=== PATIENT | male | born 1930 | race Caucasian/White ===

== ENCOUNTER 2018-05-04 05:30 | Day surgery (SDC) | payer OTHER ==
[~2018-05-04] VITALS: Ht 185.4 cm; Wt 78.9 kg
--- NOTE | ~2018-05-04 | O ---
[facility] [place] [address] OPERATIVE REPORT Name: JULIA ESTRELLA Room #: 150-1 [facility]#: [id number] Admission: 05/04/18 Attend Phys: Issa Bazzi MD Discharge: Date of : 32 Report #: [id number] THIS REPORT FOR: //name// CC: Gary Bazzi DATE OF SERVICE: 05/04/2018 SURGEON: Issa Bazzi MD PATTERNATOR: None. PREOPERATIVE DIAGNOSIS: Bilateral lower lid ectropion. POSTOPERATIVE DIAGNOSIS: Bilateral lower lid ectropion. OPERATION PERFORMED: Bilateral lower lid ectropion repair. ANESTHESIA: Local with IV sedation. COMPLICATIONS: None. INDICATIONS FOR PROCEDURE: This patient has bilateral acquired lower lid ectropion with chronic tearing and discharge. The current procedures are undertaken in order to improve the patient's visual function, lacrimal outflow, and level of comfort. Informed consent was obtained to include but not limit to the risk of loss of vision, bleeding, infection, scarring, failure to improve the problem and need for further surgery. DESCRIPTION OF OPERATION: The patient was taken to the operating room where 2% Xylocaine with epinephrine mixed with equal parts of 0.75% Marcaine with Wydase was administered transcutaneously and transconjunctivally to each lower lid and lateral canthal area. The patient was then prepped and draped in the usual sterile fashion. A Maxwell clamp was then used to clamp the left lateral canthus following which a sharp canthotomy and cantholysis were performed. The tarsal strip was prepared laterally, removing the lash bearing portion of the redundant lid margin and the redundant tarsal plate. Hemostasis was achieved with a monopolar cautery, as it was throughout the case. The tarsal strip was then secured to the internal portion of the lateral orbital tubercle with two interrupted 5-0 Prolene sutures. The lateral canthal angle was sharply reformed as the subcutaneous structures and the skin were closed with multiple interrupted 6-0 plain gut sutures. Attention was then turned to the right side where the same procedure was [facility] [address] [place] [address] OPERATIVE REPORT Name: PHUONGPETEJULIA L Room #: 150-1 [facility].#: [id number] Admission: 05/04/18 Attend Phys: Issa Bazzi MD Discharge: Date of : 32 Report #: [id number] performed. The wounds were cleaned and dressed with ophthalmic antibiotic ointment. The patient was then transported to the recovery area, having tolerated the procedure well with no anesthetic or operative complications being noted. By: 1341 1348 Issa Bazzi MD /nt
[~2018-05-04 05:30] MED LIST: AMOXICILLIN 50500 MG PO; ASPIRIN325 PO; CENTRUM SILVER1 EAC2 PO; DESYREL150 MG PO; EXELON1 EACH TOP; LISINOPRIL10 MG PO; MIRALAX17 G1 PO; NEURONTIN600 MG PO; POTASSIUM99 MG PO; SLEEP AID25 MG PO
[2018-05-04 14:08] VITALS: BP 165/55
== END 2018-05-04 14:25 | disposition home or self-care (01) ==
LOC: OR 05:30 → TBA 05:30 → OR 09:03
DX: H02.105 Unspecified ectropion of left lower eyelid (principal); H02.102 Unspecified ectropion of right lower eyelid; I10 Essential (primary) hypertension; M19.90 Unspecified osteoarthritis, unspecified site; G47.33 Obstructive sleep apnea (adult) (pediatric); Z98.890 Other specified postprocedural states; Z87.891 Personal history of nicotine dependence; Z95.0 Presence of cardiac pacemaker; Z96.653 Presence of artificial knee joint, bilateral; Z98.41 Cataract extraction status, right eye; Z98.42 Cataract extraction status, left eye; Z96.612 Presence of left artificial shoulder joint
CPT/HCPCS: 50010; 50101; 50386; 50398; 51636; 56527; 56531; 70005

== ENCOUNTER 2018-06-15 05:27 | Day surgery (SDC) | payer OTHER ==
[~2018-06-15] VITALS: Ht 185.4 cm; Wt 79.8 kg
--- NOTE | ~2018-06-15 | O ---
[facility] [place] [address] OPERATIVE REPORT Name: JULIA ESTRELLA Room #: 150-2 [facility]#: [id number] Admission: 06/15/18 Attend Phys: Issa Bazzi MD Discharge: Date of : 32 Report #: [id number] THIS REPORT FOR: //name// CC: Janeen Bazzi DATE OF SERVICE: 06/15/2018 GREEN CHAIN OFFBEARER: None. PREOPERATIVE DIAGNOSIS: Bilateral upper lid ptosis with superior visual field defects both eyes. POSTOPERATIVE DIAGNOSIS: Bilateral upper lid ptosis with superior visual field defects both eyes. OPERATION PERFORMED: Bilateral upper lid functional ptosis repair. GREEN CHAIN OFFBEARER: None. ANESTHESIA: Local with IV sedation. COMPLICATIONS: None. INDICATIONS FOR PROCEDURE: This patient has bilateral upper lid ptosis with superior visual field loss both eyes. Visual field testing demonstrates dense superior visual defects. Retesting with the upper lid elevated shows an improvement in visual field loss of over 30% and in excess of 12 degrees. The current procedure is being undertaken in order to improve the patient's visual function. Informed consent was obtained to include but not limited to the risk of loss of vision, bleeding, infection, scarring, failure to improve the problem and need for further surgery, such as adjustment of lid height. DESCRIPTION OF PROCEDURE: The patient was taken to the operating room, where 2% Xylocaine with epinephrine mixed with equal parts of 0.75% Marcaine with Wydase was administered transcutaneously to each upper lid. The patient was then prepped and draped in the usual sterile fashion. An upper lid crease incision was then made bilaterally and the dissection was carried down until the orbital septum was identified. The orbital septum was then cleared and the preaponeurotic fat identified. The levator aponeurosis was then disinserted from the anterior surface of the tarsal plate and dissected [address] [address] OPERATIVE REPORT Name: JULIA ESTRELLA Room #: 150-2 [facility]#: [id number] Admission: 06/15/18 Attend Phys: Issa Bazzi MD Discharge: Date of : 32 Report #: [id number] free in the avascular Andrew's muscle plane. The aponeurosis was then advanced and reattached to the anterior surface of the tarsal plate with interrupted mattress 6-0 Novafil sutures on each side, adjusting for height and contour. The redundant aponeurosis was then amputated. The incision was then closed with multiple interrupted 6-0 chromic sutures that were used to recreate an upper lid crease. The skin was closed with a running 6-0 plain gut suture. The wound was then cleaned and dressed with ophthalmic antibiotic ointment followed by a Telfa pad. The patient was transported to the recovery area, having tolerated the procedure well with no anesthesia or operative complications being noted. By: 1206 [id number] MD millie Mancilla
[~2018-06-15 05:27] MED LIST changes: +VITAMIN D3400 UNIT PO
[2018-06-15 10:45] VITALS: BP 132/49
== END 2018-06-15 12:40 | disposition home or self-care (01) ==
LOC: TBA 05:27 → OR 05:27 → TBA 05:28 → OR 07:54
DX: H02.403 Unspecified ptosis of bilateral eyelids (principal); H53.462 Homonymous bilateral field defects, left side; H53.461 Homonymous bilateral field defects, right side; F03.90 Unspecified dementia, unspecified severity, without behavioral disturbance, psychotic disturbance, mood disturbance, and anxiety; I10 Essential (primary) hypertension; M19.90 Unspecified osteoarthritis, unspecified site; Z98.41 Cataract extraction status, right eye; Z98.42 Cataract extraction status, left eye; Z95.0 Presence of cardiac pacemaker; Z87.891 Personal history of nicotine dependence; Z96.612 Presence of left artificial shoulder joint; Z98.890 Other specified postprocedural states; Z96.653 Presence of artificial knee joint, bilateral; Z79.899 Other long term (current) drug therapy; Z85.72 Personal history of non-Hodgkin lymphomas; Z79.82 Long term (current) use of aspirin
CPT/HCPCS: 50010; 50101; 50386; 50398; 51636; 56528; 56531; 62110; 62850; 70005

== ENCOUNTER 2018-10-26 06:41 | Day surgery (SDC) | payer OTHER ==
[~2018-10-26] VITALS: Ht 185.4 cm; Wt 80.3 kg
--- NOTE | ~2018-10-26 | O ---
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 PROCEDURE: Right transfrontal orbitotomy. SURGEON: Issa Bazzi M.D. INPATIENT SERVICES RN: None. ANESTHESIA: General. COMPLICATIONS: None. INDICATIONS FOR SURGERY: This pleasant 88-year-old gentleman has a remote history of having had a non-Hodgkin's lymphoma. He presents now with a mass in his right medial orbit that encompasses the medial half of his globe extending back deep into the orbit. Today's procedure is to obtain sufficient tissue in order to determine the histologic nature of the lesion. Informed consent was obtained to include but not limited to the potential risk for loss of vision, bleeding, infection, and the certain need for further treatment after the underlying nature of the disease process is determined. DESCRIPTION OF PROCEDURE: The patient was taken to the operating room where general anesthesia was administered. The preoperative CT scan was studied. An extended lid crease incision was then outlined medially in the upper lid and subsequently made with a Sander scissor. The dissection was then carried down on to the area around the tarsal plate. This is where the mass was identified. It appeared to be diffusely infiltrating the tarsal plate. It was dissected off of what should have been the tarsal plate as best possible as the dissection was carried back out into the anterior orbit. The incision and the lid was taken full thickness back on to the conjunctival surface. The mass was moderately friable and fish fleshy in color. Four separate specimens all from the same [address] [address] OPERATIVE REPORT Name: JULIA ESTRELLA Risa Room #: 150-6 [facility]#: [id number] Admission: 10/26/18 ������������������ Attend Phys: Issa Bazzi MD Discharge: ������������������ Date of : 32 Report #: [id number] site were taken back into the orbit. The pathologist was brought in the room and handed the specimens and told the patient's history. She was planning on processing it for both flow and permanent section histology. The wound was diligently dried with pinpoint monopolar cautery. The wound was then closed with interrupted 6-0 plain gut sutures. It was dressed with erythromycin ointment. The patient subsequently transported to the recovery area having tolerated the procedure well with no anesthetic or operative complications being noted. ��������������������������������������������� ���������������������������������������� By: ��������������������������������������������� 1154 1216 Issa Bazzi MD /nt
[~2018-10-26 06:41] MED LIST changes: +DIPHENHYDRAMINE25 M3 PO; +FLONASE 0.05%50 MCG NASAL; +MELATONIN10 M1 PO; +STOOL SOFTENER250 MG PO
[2018-10-26 11:11] VITALS: BP 177/73
--- NOTE | 2018-11-02 12:06 | PATH ---
[facility] [place] [address] [place] [address] PATHOLOGY RPT PROCEDURE Name: JULIA RIZVI Room #: DEP [facility]..#: [id number] ������������������ Admission: 10/26/18 ������������������ Date of : 32 Discharge: 10/26/18 Report #: [id number] Path Case #: [id number] [facility] Accession Number: [id number] . 01 Material submitted: . orbit - RIGHT MEDIAL ORBITAL MASS. Modifiers: right, medial . 01 Clinical history: . Orbital mass . History of non-Hodgkin's lymphoma several years ago. . 02 Diagnosis: Right medial orbital mass, excisional biopsy: - Follicular lymphoma, Grade I-II, diffuse growth pattern. Please see comment. (REESEQ:simone; 10/31/2018) . . . Please see included [facility] report [id number]. AZJ/10/31/2018 . 02 Comment: Examination of the orbital mass shows diffuse proliferation of small to medium sized lymphoma cells with round slight to irregular nuclear borders, small amount of cytoplasm and small to inconspicuous nucleoli. Occasional centro blasts (2-8/high-power field) are noted. Immunophenotypic studies by flow cytometry reveal CD10 positive monotypic (clonal) B-cell population with predominantly small to intermediate/mixed cell size. (Please see flow cytometry report from [facility], specimen ID [id number]). To confirm flow cytometric findings and characterize the lymphoma cells in a tissue architectural context, immunohistochemical stains are performed with appropriate controls: . Block A1 CD20: Positive. CD3: Highlights T-lymphoid cells. CD5: Highlights T-lymphoid cells. CD10: Positive. BCL2: Positive. BCL6: Positive. Ki67: Approximately 20% proliferation fraction. . Based on the morphology, immunohistochemical staining pattern and flow cytometry, these findings are consistent with involvement by follicular lymphoma, Grade I-II, diffuse growth pattern. [address] [address] PATHOLOGY RPT PROCEDURE Name: JULIA RIZVI Room #: DEP [facility] Kathleen#: [id number] ������������������ Admission: 10/26/18 ������������������ Date of : 32 Discharge: 10/26/18 Report #: [id number] Path Case #: [id number] . These findings are discussed with Dr. Issa Bazzi on 11/01/18 at 2:30 pm. . 02 Electronically signed: . Tianna Preciado MD, Pathologist NPI- [id number] . 01 Gross description: . Received fresh from the OR labeled, "Julia Rizvi, Right medial orbital mass" are four irregular white-de jesus firm fragments of tissue ranging from 0.3 cm to about 0.6 cm each. Tiny fragment from each of these specimens is placed in RPMI and sent to [facility] for flow cytometric analysis. The remainder of the specimen is wrapped and submitted in toto for permanent sections only in A1. Touch preparations are made as well (stained with Oshea stain). (IUV:mml; 10/27/2018) [facility] . 02 Microscopic: . Special studies report received from [facility], [address] [place] [address], [address], [place], [address], on case [id number], labeled with their number [id number], dated 10/27/2018. . Flow Cytometry: Hematologic Neoplasia Assessment . Clinical History Orbital mass . Indication for Study Evaluation for lymphoma . Specimen Tissue, Orbital . Viability 71% (7AAD exclusion) . Interpretation Tissue, Orbital: CD10+ monotypic (clonal) B-cell population (8% of sample) with predominantly small to intermediate / mixed / cell size (see comments) . 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 Differential diagnosis includes follicular lymphoma, large B-cell lymphoma and Burkitt lymphoma. Morphologic and immunohistochemical comparison is required for accurate subclassification. [address] [address] PATHOLOGY RPT PROCEDURE Name: JULIA RIZVI Room #: DEP [facility] Kathleen#: [id number] ������������������ Admission: 10/26/18 ������������������ Date of : 32 Discharge: 10/26/18 Report #: [id number] Path Case #: [id number] . Populations Analyzed Abnormal B-cells: 8% Scatter properties compatible with small to intermediate cell size, cells characterized as: CD45+, CD19+, CD20+, CD5-, CD10+, CD23-, FMC7+, CD30-, CD43-, CD38+/-, HLA DR+, sIg kappa+ Remaining 56% B-cells: 6%, polytypic/polyclonal sIg light chain Lymphocytes: pattern T-cells: no significant abnormalities of the markers tested CD4:CD8: 2.5 NK cells: 1.1% CD45 Negative 36% No significant reactivity with the markers tested Events/Debris: (may represent non-hematolymphoid cells, degenerated cells, debris, unlysed red blood cells, etc.) . . Morphologic Evaluation A slide was reviewed for senior quality analyst purposes only. . Specimen Description Total Cell Yield: 1.53 X 10 and 6 . Reagent(s) Used CD2, CD3, CD4, CD5, CD7, CD8, CD10, CD11b, CD19, CD20, CD23, CD30, CD38, CD43, CD45, CD56, CD57, FMC-7, HLA-DR, kappa, lambda . at [employer], [employer]. Kenn Burgos MD Hematopathologist . . Intended Use Flow cytometry is optimally used to immunophenotypically characterize abnormal populations when they are detected. Negative flow cytometry results do not exclude lymphoma or neoplasia. Possible false negative flow cytometry results may occur in, but are not limited to, the following: neoplastic cells in Hodgkin lymphoma are not typically adequately represented by routine clinical flow cytometry; neoplastic cells may be lost or inadequately represented due to degeneration, sample processing, sampling artifact, or patchy involvement; plasma cells are typically underrepresented by flow cytometry; immature cells/blasts may be underrepresented due to hemodilution; myeloproliferative disorders and low grade myelodysplasia may not have immunophenotypic abnormalities or increased blasts. Correlation with all available clinical, laboratory, and morphologic data is always necessary to assess for the possibility of [address] [address] PATHOLOGY RPT PROCEDURE Name: JULIA RIZVI Room #: [facility]#: [id number] ������������������ Admission: 10/26/18 ������������������ Date of : 32 Discharge: 10/26/18 Report #: [id number] Path Case #: [id number] false negative flow cytometry results and to establish a diagnosis. Each marker in this analysis was used to assess for potential antigenic abnormalities or to evaluate detected abnormalities. . Disclaimer(s) This test was performed at [employer]. at [address], [address] - Life Insurance Sales Agent: You Pérez MD. [employer] is a business unit of [employer] a wholly-owned subsidiary of [employer]. . Any image or images that accompany this report are outside energy sales representatives images only and should not be used to render a diagnosis. . This test was developed and its performance characteristics determined by [employer]. It has not been cleared or approved by the Food and Drug Administration (FDA). The FDA has determined that such clearance or approval is not necessary. . For inquiries, the physician may contact Lab: [phone] . A complete copy of the report is on file. . Professional services performed by [employer] at [address], [place] [address]. Technical services performed by [employer]. at [address], [place] [address]. . (AMJ 10/31/2018) . 02 CPT . 181965 Specimen Comment: A courtesy copy of this report has been sent to Specimen Comment: [phone], . Specimen Comment: Report sent to / DR SCHNEIDER Specimen Comment: A duplicate report has been generated due to demographic updates. Performed at: 01 [facility] [address] [place] [address] [address] [id number] MD Abilio Hernandez MD Phone: [phone] Performed at: 02 [facility] [address] [id number] MD Tinana Preciado MD Phone: [phone]
== END 2018-10-26 13:05 | disposition home or self-care (01) ==
LOC: OR 06:41 → TBA 06:41 → OR 10:42
DX: C82.91 Follicular lymphoma, unspecified, lymph nodes of head, face, and neck (principal); M19.90 Unspecified osteoarthritis, unspecified site; I10 Essential (primary) hypertension; F03.90 Unspecified dementia, unspecified severity, without behavioral disturbance, psychotic disturbance, mood disturbance, and anxiety; G62.9 Polyneuropathy, unspecified; Z87.891 Personal history of nicotine dependence; Z85.830 Personal history of malignant neoplasm of bone; Z96.612 Presence of left artificial shoulder joint; Z98.41 Cataract extraction status, right eye; Z98.42 Cataract extraction status, left eye; Z95.0 Presence of cardiac pacemaker; Z96.653 Presence of artificial knee joint, bilateral
CPT/HCPCS: 50010; 50101; 50386; 50398; 51636; 56531; 62110; 62900; 64037; 70005